=== PATIENT | female | born 1985 | race Caucasian/White ===

== ENCOUNTER 2019-01-05 21:48 | Emergency (ER) | payer OTHER ==
[2019-01-05 21:56] VITALS: BP 129/96; PULSE 100; RESP 18; TEMP 98.3
--- NOTE | 2019-01-05 22:04 | ED ---
Extremity Problem HPI - General Chief complaint: Extremity Problem,Nontraumatic Stated complaint: Abscess Time Seen by Provider: 01/05/19 22:01 Source: patient Mode of arrival: ambulatory Limitations: no limitations - History of Present Illness Initial comments: is a 33yo female with PMH of IVDA who presents to the ED today for evaluation of cellulitis of left lower extremity. Patient notes she developed redness 2 days ago, she was prescribed Keflex which she has been taking, despite this she has noticed some worsening redness and swelling which prompted staff at rehab facility to send her to the ER for evaluation. Patient admits to previous IVDA but states that she has not injected in the local area in months. - Related Data Previous Rx's Medication Instructions Recorded Clindamycin [Cleocin] 450 mg PO Q6H 10 Days capsule 01/05/19 Allergies Allergy/AdvReac Type Severity Reaction Status Date / Time lamotrigine [From Lamictal] AdvReac Rash/Hives Verified 01/05/19 21:56 sulfamethoxazole AdvReac Rash/Hives Verified 01/05/19 21:56 [From Bactrim] trimethoprim [From Bactrim] AdvReac Rash/Hives Verified 01/05/19 21:56 Review of Systems ROS Statement: Those systems with pertinent positive or pertinent negative responses have been documented in the HPI. ROS Other: All systems not noted in ROS Statement are negative. Past Medical History Past Medical History: No Reported History History of Any Multi-Drug Resistant Organisms: MRSA Past Surgical History: No Surgical Hx Reported Past Psychological History: No Psychological Hx Reported Smoking Status: Current every day smoker Past Alcohol Use History: None Reported Past Drug Use History: Heroin General Exam Limitations: no limitations General appearance: alert Head exam: Present: atraumatic, normocephalic Eye exam: Present: PERRL ENT exam: Present: normal exam Neck exam: Present: full ROM Respiratory exam: Absent: respiratory distress Cardiovascular Exam: Present: regular rate GI/Abdominal exam: Absent: distended Rectal exam: Present: deferred Extremities exam: Present: full ROM Neurological exam: Present: alert, oriented X3 Psychiatric exam: Present: normal affect Skin exam: Present: other (area of induration and erythema proximal to the left medial maleolus - area measures approximately 4cm in diameter, no fluctuance or area of abscess) Course Vital Signs 01/05/19 21:53 Temperature 98.3 F Pulse Rate 100 Respiratory 18 Rate Blood Pressure 129/96 O2 Sat by Pulse 98 Oximetry Medical Decision Making - Medical Decision Making Patient was seen and evaluated, history obtained from patient Patient with evidence of cellulitis, has been on keflex for 1.5 days, is allergic to bactrim, will add clindamycin for MRSA coverage Currently no abscess noted Supportive care discussed, advised continued antibiotics, heat or ice for comfort, return for any worsening, systemic symptoms or development of abscess. All questions pertaining to care were answered, return parameters discussed, patient discharged home in stable condition. Disposition Clinical Impression: Cellulitis of lower extremity Disposition: HOME SELF-CARE Condition: Stable Instructions (If sedation given, give patient instructions): Cellulitis (DC) Prescriptions: Clindamycin [Cleocin] 450 mg PO Q6H 10 Days capsule Is patient prescribed a controlled substance at d/c from ED?: No Referrals: None,Stated [Primary Care Provider] - 1-2 days
[2019-01-05] MEDS ORDERED: CLINDAMYCIN 150 MG CAP PO STA (22:36)
== END 2019-01-05 22:49 | disposition home or self-care (01) ==
LOC: EC 21:48
DX: L03.116 Cellulitis of left lower limb (principal); F17.200 Nicotine dependence, unspecified, uncomplicated; Z86.14 Personal history of Methicillin resistant Staphylococcus aureus infection; Z88.1 Allergy status to other antibiotic agents; Z88.2 Allergy status to sulfonamides; Z88.8 Allergy status to other drugs, medicaments and biological substances
CPT/HCPCS: 99283